=== PATIENT | male | born 1985 | race African-American/Black ===

== ENCOUNTER 2017-01-26 06:54 | Inpatient (IN) ==
[2017-01-25 16:31] LABS: BILIRUBIN URINE NEGATIVE (NEGATIVE); BLOOD URINE NEGATIVE (NEGATIVE); COLOR YELLOW; GLUCOSE URINE NEGATIVE (NEGATIVE); LEUKOCYTES URINE NEGATIVE (NEGATIVE); NITRITE URINE NEGATIVE (NEGATIVE); PROTEIN URINE 100 mg/dL (NEGATIVE); SP GRAVITY URINE 1.011; TURBIDITY URINE CLEAR (CLEAR); URINE MICRO REVIEW NEEDED? NO; URINE SOURCE VOIDED; UROBILINOGEN URINE NORMAL (NORMAL)
[2017-01-25 16:32] LABS: UR EPITHELIAL CELLS <10 /HPF (<10); URINE BACTERIA NEGATIVE /HPF; URINE RBC <10 /HPF (<10); URINE WBC <10 /HPF (<10)
[2017-01-25 16:36] LABS: BASO% 0.2 % (0.0-0.8); EOS# 0.12 X1000 (0.0-0.7); EOS% 2.5 % (0.0-10.0); HEMATOCRIT 36.7 % (42.0-52.0); HEMOGLOBIN 11.9 g/dL (14.0-18.0); LYMPH% 37.3 % (20.5-51.1); MANUAL DIFF NEEDED? NO; MCH 29.2 PG (27-31); MCHC 32.4 g/dL (33-37); MCV 90.2 FL (81-99); MONO# 0.57 X1000 (0.11-0.59); MONO% 11.8 % (1.7-9.3); MPV 9.9 FL (7.4-10.4); NEUT% 48.2 % (42.2-75.2); PLT 283 X1000 (130-400); RBC 4.07 XMIL (4.7-6.1)
[2017-01-25 17:41] LABS: AGAP 12; ALBUMIN 4.2 g/dL (3.5-5.0); ALKALINE PHOSPHATASE 330 U/L (32-122); BUN 6 mg/dL (8-22); CHLORIDE 94 mmol/L (98-107); COSMO 263; GOT 159 U/L (10-34); GPT 260 U/L (10-44); POTASSIUM 3.8 mmol/L (3.5-5.1); SODIUM 133 mmol/L (136-145); TCO2 27 mmol/L (25-35); TOTAL BILIRUBIN 1.42 mg/dL (0.20-1.00); TOTAL PROTEIN 7.8 g/dL (6.3-8.3)
--- NOTE | 2017-01-25 18:39 | Diag Imaging Result Doc PS360 ---
EXAM: CHEST-2 VIEWS - 01/25/2017 HISTORY: PAT TECHNIQUE: Chest two views COMPARISON: 07/04/2014 FINDINGS: Heart size is within normal limits. Inspiration is mildly shallow. The lungs appear clear. There is no pleural effusion or pneumothorax identified. IMPRESSION: Mildly shallow inspiration. No other evidence of acute disease. Electronically signed by Chau Guzman 01/25/2017 6:37 PM
[2017-01-26] MEDS ORDERED: PEPCID ONE (07:17)
[2017-01-26] MEDS ORDERED: LR 1,000 ML ONE ×2 (07:17→09:03)
[2017-01-26] MEDS ORDERED: REGLAN ONE (07:17)
[2017-01-26] MEDS ORDERED: KEFZOL 1 GM/D5W 1 GM/50 ML IVPB ONE (07:17)
[2017-01-26] MEDS ORDERED: SODIUM CHLORIDE 0.9% ONE (09:03)
[2017-01-26] MEDS ORDERED: SENSORCAINE 0.5%-EPI 1:200,000 ONE (09:03)
[2017-01-26] MEDS ORDERED: FENTANYL ONE (09:04)
[2017-01-26] MEDS ORDERED: DIPRIVAN 1% ONE (09:04)
[2017-01-26] MEDS ORDERED: ZEMURON ONE (09:35)
[2017-01-26] MEDS ORDERED: ROBINUL ONE (09:35)
[2017-01-26] MEDS ORDERED: NEOSTIGMINE ONE (09:35)
[2017-01-26] MEDS ORDERED: ZOFRAN ONE (09:35)
[2017-01-26] MEDS ORDERED: XYLOCAINE-MPF 2% ONE (09:35)
[2017-01-26] MEDS ORDERED: QUELICIN (DOSE) ONE (09:35)
[2017-01-26] MEDS ORDERED: MORPHINE ONE (09:43)
[2017-01-26] MEDS ORDERED: LABETALOL ONE (10:09)
[2017-01-26] MEDS ORDERED: NITROGLYCERIN ONE (10:09)
--- NOTE | 2017-01-26 10:50 | Diag Imaging Result Doc PS360 ---
EXAM: OPERATIVE CHOLANGIOGRAM HISTORY: GALLBLADDER DZ COMMENT: TECHNIQUE: Intraoperative cholangiogram, two views there are no apparent filling defects or obstructing lesions and contrast is seen in the duodenum. The entire common bile duct is not opacified. IMPRESSION: No evidence of retained stones. Electronically signed by Talat Mckeon 01/26/2017 10:48 AM
[2017-01-26] MEDS ORDERED: D5 1/2 NS 1,000 ML ONE (12:13)
[2017-01-26] MEDS: MORPHINE ONE ×3 (12:19→12:35)
[2017-01-26] MEDS: DILAUDID ONE ×3 (12:51→13:32)
[2017-01-26] MEDS ORDERED: NORCO-10 ONE (14:21)
[2017-01-26] MEDS ORDERED: ZOFRAN IV PRN (16:48)
[2017-01-26] MEDS: D5 1/2 NS 1,000 ML IV SCH (18:12)
[2017-01-26] MEDS: KEFZOL 1 GM/D5W 1 GM/50 ML IVPB IV SCH (18:13)
[2017-01-26] MEDS: NORCO-10 PO PRN ×2 (18:22→22:57)
[2017-01-26] MEDS ORDERED: GEODON PO SCH ×3 (21:00)
[2017-01-26] MEDS: GEODON PO SCH ×2 (21:56)
[2017-01-26] MEDS: LAMICTAL PO SCH (21:57)
[2017-01-26] MEDS: PERIDEX MT SCH (22:00)
[2017-01-26] MEDS: MORPHINE IV PRN (23:56)
[2017-01-27] MEDS: KEFZOL 1 GM/D5W 1 GM/50 ML IVPB IV SCH ×2 (02:12→08:09)
[2017-01-27] MEDS: MORPHINE IV PRN (02:15)
[2017-01-27] MEDS: NORCO-10 PO PRN ×3 (04:13→15:59)
[2017-01-27] MEDS: D5 1/2 NS 1,000 ML IV SCH (04:29)
[2017-01-27 05:48] LABS: MANUAL DIFF NEEDED? NO
[2017-01-27 06:08] LABS: PROTIME 10.5 Seconds (9.2-11.7)
[2017-01-27 06:14] LABS: BASO% 0.1 % (0.0-0.8); EOS# 0.03 X1000 (0.0-0.7); EOS% 0.3 % (0.0-10.0); HEMATOCRIT 27.5 % (42.0-52.0); HEMOGLOBIN 8.8 g/dL (14.0-18.0); IMM GRAN# 0.02 X1000 (0.0-0.04); IMM GRAN% 0.2 % (0.0-0.5); LYMPH# 1.56 X1000 (1.2-3.4); MCH 29.5 PG (27-31); MCV 92.3 FL (81-99); MONO# 1.22 X1000 (0.11-0.59); MONO% 13.3 % (1.7-9.3); MPV 9.9 FL (7.4-10.4); NEUT% 69.1 % (42.2-75.2); PLT 262 X1000 (130-400); RBC 2.98 XMIL (4.7-6.1)
[2017-01-27 06:25] LABS: AGAP 12; ALBUMIN 3.7 g/dL (3.5-5.0); ALKALINE PHOSPHATASE 230 U/L (32-122); AMYLASE 56 U/L (20-200); BUN 6 mg/dL (8-22); CALCIUM 8.1 mg/dL (8.8-10.2); CHLORIDE 97 mmol/L (98-107); COSMO 270; GOT 182 U/L (10-34); GPT 316 U/L (10-44); SODIUM 136 mmol/L (136-145); TCO2 27 mmol/L (25-35); TOTAL BILIRUBIN 1.05 mg/dL (0.20-1.00); TOTAL PROTEIN 6.7 g/dL (6.3-8.3)
[2017-01-27] MEDS: PERIDEX MT SCH ×2 (08:10→21:26)
[2017-01-27] MEDS: CENTRUM TABLET PO SCH (10:44)
[2017-01-27] MEDS: GEODON PO SCH ×3 (10:45→21:13)
[2017-01-27] MEDS: LAMICTAL PO SCH ×2 (10:45→21:14)
[2017-01-27] MEDS: PRILOSEC PO SCH (10:45)
--- NOTE | 2017-01-27 19:49 | CONSULTATION ---
DATE OF CONSULTATION: 01/27/2017 PRIMARY CARE DOCTOR: Dr. Christian. REASON FOR CONSULTATION: Elevated liver enzymes. HISTORY: Mr. Escalante is a 31-year-old male, who was admitted yesterday and underwent cholecystectomy for gallstones by Dr. Christian. He had an intravenous cholangiogram which showed no evidence of any retained stones and free flow of contrast in the duodenum. The patient had some drainage at one of the trocar sites which was draining some blood. He had a HAROLDO drain placed which is draining small amounts of serosanguineous drainage about 15 mL. The patient was noted to have liver enzymes on admission and his AST was 159, ALT 260, alkaline phos 230, total bilirubin is 1.42. Today after 2 days his liver enzymes are trending down. His total bilirubin is 1.05, alkaline phosphatase 230. His AST is slightly up to 182 and 316. Along with that he was also noted to have a drop in his hematocrit from 36.7 to 27.5, which is likely secondary to postoperative state. Prior to this visit on 08/13/2016 his AST was 34 which is normal and ALT was 24 which is normal. His alkaline phosphatase on 08/13/2016 was 70 and his total bilirubin at that point on 08/13/2016 was 0.32. So this is a fairly recent change in his liver enzymes. His amylase is 56 today. The patient denies any previous known liver disorders. He denies any history of known hepatitis. He denies any use of recent hepatotoxic drugs. MEDICATIONS AT HOME: 1. Omeprazole 40 mg a day. 2. Lamictal 100 mg p.o. b.i.d. 3. Geodon 40 mg at bedtime. 4. Geodon 80 mg p.o. b.i.d. 5. Multivitamin once daily. ALLERGIES: No known drug allergies. MEDICATIONS IN THE HOSPITAL: Include: 1. Chlorhexidine 15 mL oral solution b.i.d. 2. Dextrose 5% 100 mL/hr. 3. Hydrocodone/acetaminophen 10 mg 1 tablet q.4h. as needed. 4. Dilaudid 2 mg IV q. 3-4 hours as needed. 5. Lamictal 100 mg p.o. b.i.d. 6. Morphine 2-4 mg IV q. 2 hours as needed. 7. Multivitamin once a day. 8. Omeprazole 40 mg a day. 9. Zofran 4 mg IV q. 4-6 hours. 10. Geodon 40 mg p.o. b.i.d. 11. Geodon 80 mg at bedtime. PAST MEDICAL HISTORY: Reflux disease, hypertension, bronchitis, anemia. PAST SURGICAL HISTORY: Vasectomy and cholecystectomy. SOCIAL HISTORY: Smokes cigars. Otherwise unremarkable. FAMILY HISTORY: Noncontributory. REVIEW OF SYSTEMS: Limited, the patient was on IV narcotics and was falling asleep during the interview. The patient denies any major nausea, vomiting or vomiting blood or passing blood in the stools. PHYSICAL EXAMINATION: Temperature 98.3 degrees, pulse of 80, respiratory rate 18, blood pressure 130/79, saturating 98% on room air. Body weight of 282 pounds 4.8 ounces. BMI 41.7 kg. General appearance: Obese, lying in bed in no acute distress. HEENT: Pale conjunctiva , no icterus. Neck: Supple. Abdomen: Drain noted in the right upper quadrant. Soreness in the abdomen from the surgery, no guarding. Extremities: No cyanosis, clubbing, edema. Neuro: He is sleepy at time, but was able to wake up and answer simple questions. LABS: His hemoglobin and hematocrit is 8.8 and 27.5, white count 9.1, platelet count of 262,000, MCV of 92.3. INR 1, PT of 10.5, PTT of 25. Sodium 130, potassium 4, chloride 97, bicarb 20, anion gap 12, BUN of 6, creatinine 0.6, glucose 115, calcium 8.1, total bilirubin is 1.05, AST 182, ALT 316, alkaline phosphatase 230, total protein 6.7, albumin of 3.7, amylase 56. Urinalysis has mild protein. Ultrasound of the abdomen done on 01/21/2017 showed gallbladder is packed with gallstones. Common bile duct measuring 4 mm. The liver, pancreas and right kidney are normal. Gallstones status post cholecystectomy. Recent elevation of liver enzymes as liver enzymes were normal in July 2016 of unclear etiology. Could be secondary to recent gallbladder surgery, but the patient is overweight, so he could have some baseline fatty liver disease. RECOMMENDATIONS: 1. We will check the hepatitis panel, antinuclear antibody and chronic liver disease workup. 2. The patient was counseled to lose weight. 3. Will keep patient on PPIs once daily for GI prophylaxis. 4. We will keep him on full liquid diet. 5. The patient will be watched closely with daily liver enzymes. If the patient continues to have elevated liver enzymes, then we may need to have repeat imaging ultrasound of the abdomen to evaluate the liver and spleen. 6. The above plans discussed with the patient and family and with Dr. Christian. cc: MD Sang Davidson MD [facility]
[2017-01-27] MEDS: DILAUDID IV PRN (21:17)
[2017-01-28] MEDS: DILAUDID IV PRN ×2 (02:47→06:25)
[2017-01-28 06:33] LABS: MANUAL DIFF NEEDED? NO
[2017-01-28 07:00] LABS: BASO% 0.3 % (0.0-0.8); EOS# 0.08 X1000 (0.0-0.7); HEMATOCRIT 25.4 % (42.0-52.0); IMM GRAN# 0.02 X1000 (0.0-0.04); IMM GRAN% 0.3 % (0.0-0.5); LYMPH# 1.63 X1000 (1.2-3.4); LYMPH% 20.4 % (20.5-51.1); MCH 29.2 PG (27-31); MCHC 31.5 g/dL (33-37); MCV 92.7 FL (81-99); MONO# 1.25 X1000 (0.11-0.59); MONO% 15.6 % (1.7-9.3); MPV 10.3 FL (7.4-10.4); NEUT% 62.4 % (42.2-75.2); PLT 251 X1000 (130-400); RBC 2.74 XMIL (4.7-6.1)
[2017-01-28 07:02] LABS: AGAP 10; ALBUMIN 3.6 g/dL (3.5-5.0); ALKALINE PHOSPHATASE 240 U/L (32-122); BUN 4 mg/dL (8-22); CALCIUM 9.1 mg/dL (8.8-10.2); CHLORIDE 97 mmol/L (98-107); COSMO 265; GOT 113 U/L (10-34); GPT 248 U/L (10-44); POTASSIUM 4.4 mmol/L (3.5-5.1); SODIUM 134 mmol/L (136-145); TCO2 27 mmol/L (25-35); TOTAL BILIRUBIN 0.97 mg/dL (0.20-1.00); TOTAL PROTEIN 6.8 g/dL (6.3-8.3)
[2017-01-28] MEDS: NORCO-10 PO PRN ×4 (10:04→22:51)
[2017-01-28] MEDS: GEODON PO SCH ×3 (10:05→22:51)
[2017-01-28] MEDS: PERIDEX MT SCH ×2 (10:05→22:49)
[2017-01-28] MEDS: LAMICTAL PO SCH ×2 (10:05→22:50)
[2017-01-28] MEDS: PRILOSEC PO SCH (10:05)
[2017-01-28] MEDS: CENTRUM TABLET PO SCH (10:05)
[2017-01-28 11:48] LABS: HEPATITIS PROFILE ACUTE SEE COMMENTS
--- NOTE | 2017-01-28 12:53 | PROGRESS NOTE ---
DATE: 01/28/2017 SUBJECTIVE: Patient is currently resting in chair. His family is at the bedside. He denies any nausea or vomiting today. He denies any fevers, rigors, or chills. OBJECTIVE: Vital signs: Temperature 97.3, pulse of 107, respiratory 16, blood pressure 126/79, saturating 98% on room air. General: He is sitting in chair in no acute distress. Eyes: Pale conjunctivae. No icterus. Neck: Supple. Abdomen: A drain in the right upper quadrant, and there is a surgical gauze over 1 of the trocar sites. Has mildly sore in the abdomen from surgery, no guarding. Extremities: No cyanosis, clubbing, and edema. Neurologic: Alert, awake, and oriented x3. LABS: H and H is 8 and 25.4, white count of 8, platelet count of 251,000. Sodium 135, potassium 4.4, chloride 97, bicarb 27, anion gap 10, BUN of 4, creatinine 0.7, glucose of 98. Total bilirubin is 0.97, AST 113, ALT 248, alkaline phosphatase is 240. Total protein 6, albumin of 3.6. Acute hepatitis panel is nonreactive. IMPRESSION AND PLAN: 1. Acute elevation in liver enzymes and status post cholecystectomy for gallstones. His liver enzymes are trending down, so we will continue watch them. Will follow the chronic liver disease workup. His hepatitis panel has been negative. We will avoid any hepatotoxic drugs. The patient follows in clinic in 1 month after discharge. At that time, we will repeat his liver enzymes. 2. Obesity. The patient is counseled to lose weight. 3. Gastrointestinal prophylaxis to continue. 4. Anemia. Will start him on multivitamin once daily. 5. Patient will be started on bowel regimen with Dulcolax. 6. Above plan was discussed with the patient, family, and also Dr. Christian. cc: MD Sang Davidson MD
[2017-01-28] MEDS: HEMOCYTE PLUS CAPSULE PO SCH (14:32)
[2017-01-28] MEDS ORDERED: DULCOLAX PR SCH (21:00)
[2017-01-29] MEDS: NORCO-10 PO PRN ×2 (06:25→10:16)
[2017-01-29] MEDS: D5 1/2 NS 1,000 ML IV SCH ×2 (08:24→08:25)
[2017-01-29] MEDS: GEODON PO SCH (10:10)
[2017-01-29] MEDS: HEMOCYTE PLUS CAPSULE PO SCH (10:11)
[2017-01-29] MEDS: CENTRUM TABLET PO SCH (10:11)
[2017-01-29] MEDS: LAMICTAL PO SCH (10:11)
[2017-01-29] MEDS: PRILOSEC PO SCH (10:11)
[2017-01-29] MEDS: PERIDEX MT SCH (10:12)
[2017-01-29 11:24] VITALS: BP 132/71
--- NOTE | 2017-02-12 08:43 | DISCHARGE SUMMARY ---
ADMISSION DATE: 01/28/2017 DISCHARGE DATE: 01/29/2017 DIAGNOSES: 1. Cholecystitis. 2. Cholelithiasis. 3. Elevated liver functions. 4. Probable choledocholithiasis that had passed. 5. Bipolar disorder. 6. Morbid obesity. 7. Heavy tobacco use. HISTORY AND HOSPITAL COURSE: The patient is a 31-year-old black male with long history of bipolar disorder, on multiple antipsychotic medications, who presented with elevated liver functions and multiple stones on his ultrasound from Dr. Landa's office. He was taken to surgery as an outpatient. The operation revealed multiple stones. His cholangiogram was satisfactory, but he probably had passed some stones. There were multiple 2 and 3 mm stones. He was admitted after Jesus-Franklin drain placement. On the next day, his drainage was down significantly, his liver functions were down, his hematocrit had drifted down to the 25 range. He required no blood transfusions. He was maintained in the hospital with daily lab work. His blood count was coming up slightly, and his liver functions continued to normalize. He was subsequently allowed home on 01/29/2017 after removal of his Jesus-Franklin. He will be seen in the office in 1 week's time. cc: Sang Christian MD
--- NOTE | 2017-02-12 09:06 | OPERATIVE NOTE ---
PROCEDURE DATE: 01/26/17 DIAGNOSES: 1. Cholecystitis, cholelithiasis. 2. Bipolar disorder. 3. Morbid obesity. 4. Elevated liver functions. PROCEDURE: Laparoscopic cholecystectomy, attempted cholangiogram. DESCRIPTION OF PROCEDURE IN DETAIL: The patient was brought to the operating room. After satisfactory induction of IV and endotracheal anesthesia, athrombic TEDs were placed. His abdomen was broadly prepped and draped in the appropriate manner for laparoscopy. Initially, the infraumbilical area was infiltrated with 0.25% Marcaine with epinephrine. Dissection was taken sharply down through skin and subcutaneous tissue. Fascia was tacked with 0 Surgilon and incised. Under direct visualization, a Ronnie trocar was placed. The abdomen was insufflated to 3.5 L of carbon dioxide. Again, after infiltration with Marcaine and epinephrine, one 10 and two 5 mm trocars were placed across the right epigastrium. The patient was repositioned, and the gallbladder was grasped and retracted superiorly. It was seen to be chronically infected and full of stones. The hilar structures were dissected. Operative cholangiogram revealed good flow of contrast into the duodenum with no obstruction. The catheter was subsequently removed and the duct was doubly clipped and divided. The gallbladder was dissected from the liver bed with the use of the monopolar scissors. On completion, the gallbladder was placed in an EndoCatch bag and removed. On opening, there were multiple 2 and 3 mm stones in the gallbladder. Reinspection of the liver bed revealed small bleeding points that were controlled by electrocautery or Surgicel gauze. The subhepatic and subphrenic spaces were subsequently aspirated free of the small amount of bile and blood. All trocars were subsequently removed after abdominal deflation. The subumbilical incision underwent fascial closures of 0 Surgilon. All skin incisions were closed with stainless steel clips. A Jesus-Franklin drain had been placed and threaded into the subhepatic space prior to closure since the patient had multiple stones. He was subsequently awakened and extubated in the operating room and transferred to recovery. Estimated blood loss was 50 mL. cc: Sang Christian MD
== END 2017-01-29 12:50 | disposition home or self-care (01) ==
LOC: 4N 06:54 → OR 06:54 → UNDODISOB 01-29 12:50
PROVIDERS: ADMIT Surgery; ATTEND Surgery